=== PATIENT | female | born 1955 | race Caucasian/White ===

== ENCOUNTER 2016-05-07 13:02 | Emergency (ER) | payer OTHER ==
[2016-05-07 13:07] VITALS: BP 126/73; PULSE 76; TEMP 97.9; BMI 20.5
[2016-05-07] MEDS ORDERED: KETOROLAC TROMETHAMINE 30 MG/1 ML VIAL IM ONE (13:57)
[2016-05-07 14:01] LABS: URINE APPEARANCE CLEAR; URINE BILIRUBIN NEGATIVE (NEGATIVE); URINE BLOOD NEGATIVE (NEGATIVE); URINE COLOR LTYELLOW; URINE GLUCOSE (UA) NEGATIVE (NEGATIVE); URINE KETONE NEGATIVE (NEGATIVE); URINE LEUK ESTERASE NEGATIVE (NEGATIVE); URINE NITRITE NEGATIVE (NEGATIVE); URINE PROTEIN NEGATIVE (NEGATIVE); URINE UROBILINOGEN NEGATIVE E.U./dl (0.2-1.0)
[2016-05-07] MEDS ORDERED: KETOROLAC TROMETHAMINE 30 MG/1 ML VIAL ONE (14:01)
--- NOTE | 2016-05-07 14:02 | PDOC ---
History of Present Illness - General Chief Complaint: Back Pain Stated Complaint: LOWER BACK PAIN Time Seen by Provider: 05/07/16 13:41 History Source: Patient Exam Limitations: No Limitations - History of Present Illness Initial Comments: 05/07/16 13:59 61 yr female history of HTN, hyperthyroid presents with 3 days low back pain left side radiates to left flank for 3 days . no nausea neg fever or chills, neg vomiting. no injury. Past History - Past Medical History Allergies/Adverse Reactions: Allergies Allergy/AdvReac Type Severity Reaction Status Date / Time No Known Allergies Allergy Verified 05/07/16 13:06 Home Medications: Ambulatory Orders Atenolol [Tenormin -] 50 mg PO DAILY 11/27/15 Methimazole [Tapazole] 5 mg PO DAILY 11/27/15 Diazepam [Valium] 2 mg PO TID PRN #9 tablet MDD 6mg 05/07/16 Ketorolac Tromethamine [Toradol] 10 mg PO Q6H PRN #20 tablet 05/07/16 HTN: Yes Thyroid Disease: Yes - Surgical History Abdominal Surgery: Yes (umbilical hernia) - Family Disease History Comment:: 05/07/16 14:00 none - Psycho/Social/Smoking Cessation Hx Suicidal Ideation: No Smoking History: Never smoked Information on smoking cessation initiated: No Hx Alcohol Use: No Drug/Substance Use Hx: No Substance Use Type: None Trauma Specific PMHX - Complaint Specific PMHX Arthritis: No Back Injury: No Neck Injury: No Hx Sacro Iliac Joint Dysfunction: No Review of Systems - Review of Systems Able to Perform ROS?: Yes Is the patient limited Indonesian proficient: No Constitutional: No: Symptoms Reported HEENTM: No: Symptoms Reported, Difficulty Swallowing Respiratory: No: Symptoms reported, Other Cardiac (ROS): No: Symptoms Reported ABD/GI: No: Symptoms Reported : No: Symptoms Reported Musculoskeletal: Yes: Symptoms Reported, See HPI, Back Pain *Physical Exam - Vital Signs Last Vital Signs Temp Pulse Resp BP Pulse Ox 97.9 F 76 18 126/73 97 05/07/16 13:04 05/07/16 13:04 05/07/16 13:04 05/07/16 13:04 05/07/16 13:04 - Physical Exam General Appearance: Yes: Nourished, Appropriately Dressed HEENT: positive: EOMI, ALY, Normal ENT Inspection, TMs Normal, Pharynx Normal Neck: positive: Supple Respiratory/Chest: positive: Lungs Clear, Normal Breath Sounds. negative: Chest Tender Cardiovascular: positive: Regular Rhythm, Regular Rate Gastrointestinal/Abdominal: positive: Normal Bowel Sounds, Tender (left side lower ), Soft Rectal Exam: positive: deferred Lymphatic: negative: Adenopathy Musculoskeletal: positive: Normal Inspection Extremity: positive: Normal Capillary Refill, Normal Inspection, Normal Range of Motion Integumentary: positive: Normal Color, Dry, Warm Neurologic: positive: Fully Oriented, Alert, Normal Mood/Affect, Normal Response , Motor Strength 5/5 Medical Decision Making - Medical Decision Making 05/07/16 14:02 cc: left flank pain, low back pain radiates to lower abd, reproducable with touch, worse with sitting to standing. will check UA for UTI 05/07/16 14:11 05/07/16 14:44 urine is negative, pt feels much better after medication, sitting in the chair comfortable no distress, asking to go home. will send medication to pharmacy, pt to follow up with pmd this week. Daughter has translated this information. Pt with steady gait no distress. 05/07/16 15:18 *DC/Admit/Observation/Transfer Diagnosis at time of Disposition: Low back pain Qualifiers: Chronicity: acute Back pain laterality: left Sciatica presence: with sciatica Sciatica laterality: sciatica of left side Qualified Code(s): M54.42 - Lumbago with sciatica, left side - Discharge Dispostion Disposition: HOME Condition at time of disposition: Good - Prescriptions Prescriptions: Ketorolac Tromethamine [Toradol] 10 mg PO Q6H PRN #20 tablet PRN Reason: Back Pain Diazepam [Valium] 2 mg PO TID PRN #9 tablet MDD 6mg PRN Reason: Muscle Spasms - Referrals Referrals: Khoi Menendez [Primary Care Provider] - - Patient Instructions Additional Instructions: follow with your doctor next week for follow up no bending down or lifting heavy objects warm compresses, Icy Hot to lower back can be helpful take the medication as prescribed DO NOT TAKE VALIUM IF YOU ARE DRIVING, OPERATING MACHINERY OR OTHER IT MAY MAKE YOU DROWSY
== END 2016-05-07 14:50 | disposition home or self-care (01) ==
LOC: JERFT 13:02
PROC: 3E0233Z Introduction of Anti-inflammatory into Muscle, Percutaneous Approach (ICD-10-PCS; principal; 2016-05-07)
DX: M54.42 Lumbago with sciatica, left side (principal); I10 Essential (primary) hypertension; E05.90 Thyrotoxicosis, unspecified without thyrotoxic crisis or storm
CPT/HCPCS: 81003; 87086; 96372; 99281-25

== ENCOUNTER → 2016-09-12 | Day surgery (SDC) | payer OTHER ==
--- NOTE | 2016-09-13 14:20 | PATH ---
Cytology Non-Gynecological Report Patient Name: CARROLL CAVANAUGH [facility]. Rec. #: [id number] /Age/Gender: 1955 (Age: 61) / F Account: [id number] Location: RADIOLOGY Taken: 09/12/2016 Received: 09/12/2016 Reported: 09/13/2016 Physicians: Asiya Quezada M.D. Specimen(s) Received RIGHT THYROID FNA Clinical History Right thyroid nodule, 1.56 x 0.81 x 0.89 cm Final Diagnosis THYROID GLAND, RIGHT LOBE, US GUIDED FINE NEEDLE ASPIRATION BIOPSY: BORDERLINE CELLULARITY; COLLOID IS PRESENT. NO MALIGNANT CELLS IDENTIFIED. SCATTERED CLUSTERS OF BLAND APPEARING FOLLICULAR EPITHELIAL CELLS, FEW MACROPHAGES AND COLLOID, SUGGESTIVE OF NODULAR GOITER WITH CYSTIC CHANGE (SEE COMMENT). Comment: The smears show scattered clusters of bland appearing follicular epithelial cells, few macrophages and colloid. The findings are most suggestive of nodular goiter with cystic change (Sapphire category II, benign). Imaging correlations and follow up are suggested. Electronically Signed Buzz Trotter M.D. Gross Description Received are four air dried smears, four smears in 95% alcohol, and 20 cc of bloody fluid in formalin. Four diff-quik stained slides, four Pap stained slides and one cell block are made.
== END | disposition home or self-care (01) ==
LOC: JRADIR 09:24
PROVIDERS: ATTEND Internal Medicine Endocrinology, Diabetes & Metabolism
PROC: 0GBH3ZX Excision of Right Thyroid Gland Lobe, Percutaneous Approach, Diagnostic (ICD-10-PCS; principal; 2016-09-12)
PROC: BG44ZZZ Ultrasonography of Thyroid Gland (ICD-10-PCS; 2016-09-12)
DX: E04.1 Nontoxic single thyroid nodule (principal)
CPT/HCPCS: 76942; 88173; 88305-TC

== ENCOUNTER 2022-05-04 20:51 | Emergency (ER) | payer OTHER ==
[2022-05-04 21:00] VITALS: BMI 25.6
[2022-05-04] MEDS ORDERED: ACETAMINOPHEN 325 MG TABLET (FP) PO ONE (21:58)
[2022-05-04] MEDS ORDERED: ACETAMINOPHEN 500 MG TABLET (FP) ONE (22:18)
[2022-05-04 22:27] LABS: BASO % 0.3 % (0-2.0); EOS % 0.2 % (0-4.5); HEMATOCRIT 36.5 % (32.4-45.2); HEMOGLOBIN 12.5 GM/dL (10.7-15.3); LYMPH % 9.3 % (8-40); MCH 30.3 pg (25.7-33.7); MCHC 34.3 g/dl (32.0-36.0); MEAN CELL VOLUME 88.5 fl (80-96); MEAN PLT VOLUME 8.4 fl (7.5-11.1); MONO % 7.6 % (3.8-10.2); NEUT % 82.6 % (42.8-82.8); PLATELET COUNT 210 10^3/uL (134-434); RBC 4.12 M/mm3 (3.60-5.2); WHITE BLOOD COUNT 10.5 K/mm3 (4.0-10.0)
[2022-05-04 22:29] LABS: EPI CELLS >36 /uL (0-25.1); HYALINE CASTS 1 /uL (0-3.1); PH,URINE 8.5 (5.0-8.0); URINE APPEARANCE CLEAR; URINE BACTERIA 1157 /uL (0-1359); URINE BILIRUBIN NEGATIVE (NEGATIVE); URINE COLOR ORANGE; URINE GLUCOSE (UA) NEGATIVE (NEGATIVE); URINE KETONE TRACE (NEGATIVE); URINE LEUK ESTERASE 1+ (NEGATIVE); URINE NITRITE NEGATIVE (NEGATIVE); URINE PROTEIN 2+ (NEGATIVE); URINE WBC 35 /uL (0-25.8)
[2022-05-04 22:58] LABS: ALBUMIN 3.6 g/dl (3.4-5.0); BLOOD UREA NITROGEN 8.6 mg/dL (7-18); CALCIUM 9.3 mg/dL (8.5-10.1)
[2022-05-04 23:01] LABS: CREATININE 0.8 mg/dL (0.55-1.3)
[2022-05-04 23:03] LABS: BILIRUBIN,TOTAL 0.7 mg/dL (0.2-1); TOT PROT 7.7 g/dl (6.4-8.2)
[2022-05-05] MEDS ORDERED: LACTATED RINGERS SOLUTION 1000 ML INFUS.BAG IV ONE (01:20)
[2022-05-05] MEDS ORDERED: CEFTRIAXONE 1,000 MG in DEXTROSE 5%-WATER - 50 ML IVPB ONE (01:30)
[2022-05-05] MEDS ORDERED: LACTATED RINGERS SOLUTION 1,000 ML/1,000 ML INFUS.BAG IV SCH (01:30)
[2022-05-05] MEDS ORDERED: CEFTRIAXONE 1 GM/50 ML BAG ONE (01:31)
[2022-05-05 01:51] VITALS: BP 124/61; PULSE 77; RESP 15; TEMP 98.1
== END 2022-05-05 02:34 | disposition home or self-care (01) ==
LOC: JER 20:51
DX: N10 Acute pyelonephritis (principal)
CPT/HCPCS: 0241U-QW; 36415; 74177-TC; 80053; 81003; 85025; 87086; 93005; 93010; 96374; 99284-25

== ENCOUNTER 2022-10-12 08:56 | Day surgery (SDC) | payer MEDICARE, OTHER ==
[2022-10-06 14:18] VITALS: BMI 25.4
[2022-10-12] MEDS ORDERED: CARBACHOL 0.01% INTRA-OCULAR 1.5 ML VIAL ONE (09:26)
[2022-10-12] MEDS ORDERED: LIDOCAINE 1% P/F 10 MG/ML VIAL ONE (09:26)
[2022-10-12] MEDS ORDERED: TETRACAINE 0.5% OPHTH SOLN 2 ML BOTTLE ONE (09:26)
[2022-10-12] MEDS ORDERED: NEO/POLYMYX B SULF/DEXAMETH OPHTHALMIC 5ML BOTTLE ONE (09:26)
[2022-10-12] MEDS ORDERED: BSS (NA/CA/MG/K) BALANCED SALT SOLUTION OPHTH SOLN 15 ML BOTTLE ONE (09:26)
[2022-10-12] MEDS: TROPICAMIDE 1% OPHTH SOLN 15 ML BOTTLE ONE ×3 (10:25→10:35)
[2022-10-12] MEDS: CIPROFLOXACIN 0.3% EYE DROPS 5 ML BOTTLE ONE ×3 (10:25→10:35)
[2022-10-12] MEDS: PHENYLEPHRINE 2.5% OPTHALMIC DROP 2ML BOTTLE ONE ×3 (10:25→10:35)
[2022-10-12] MEDS: CYCLOPENTOLATE 2% OPHTH SOLN 2 ML BOTTLE ONE ×3 (10:25→10:35)
[2022-10-12] MEDS ORDERED: MIDAZOLAM HCL 2 MG/2 ML SINGLE DOSE VIAL ONE (11:32)
[2022-10-12 11:59] VITALS: RESP 18; TEMP 97
[2022-10-12 12:26] VITALS: BP 150/60; PULSE 66
== END 2022-10-12 12:30 | disposition home or self-care (01) ==
LOC: FASU 08:56
PROVIDERS: ATTEND Ophthalmology
PROC: 08RK3JZ Replacement of Left Lens with Synthetic Substitute, Percutaneous Approach (ICD-10-PCS; principal; 2022-10-12 11:37)
DX: H26.8 Other specified cataract (principal)
CPT/HCPCS: 66984; V2632

== ENCOUNTER 2022-12-21 08:14 | Day surgery (SDC) | payer MEDICARE ==
[2022-12-19 16:14] VITALS: BMI 25.4
[2022-12-21] MEDS: PHENYLEPHRINE 2.5% OPTHALMIC DROP 2ML BOTTLE ONE ×3 (08:55→09:05)
[2022-12-21] MEDS: CIPROFLOXACIN HCL 0.3% OPHTH 2.5ML BOTTLE ONE ×3 (08:55→09:05)
[2022-12-21] MEDS: TROPICAMIDE 1% OPHTH SOLN 15 ML BOTTLE ONE ×3 (08:55→09:05)
[2022-12-21] MEDS: CYCLOPENTOLATE 2% OPHTH SOLN 2 ML BOTTLE ONE ×3 (08:55→09:05)
[2022-12-21 08:58] VITALS: TEMP 97.8
[2022-12-21] MEDS ORDERED: NEO/POLYMYX B SULF/DEXAMETH OPHTHALMIC 5ML BOTTLE ONE (09:01)
[2022-12-21] MEDS ORDERED: LIDOCAINE 1% P/F 10 MG/ML VIAL ONE (09:01)
[2022-12-21] MEDS ORDERED: TETRACAINE 0.5% OPHTH SOLN 2 ML BOTTLE ONE (09:01)
[2022-12-21] MEDS ORDERED: CARBACHOL 0.01% INTRA-OCULAR 1.5 ML VIAL ONE (09:01)
[2022-12-21] MEDS ORDERED: BSS (NA/CA/MG/K) BALANCED SALT SOLUTION OPHTH SOLN 15 ML BOTTLE ONE (09:01)
[2022-12-21] MEDS ORDERED: MIDAZOLAM HCL 2 MG/2 ML SINGLE DOSE VIAL ONE (09:44)
[2022-12-21 10:36] VITALS: PULSE 60; RESP 16
[2022-12-21 10:39] VITALS: BP 140/61
== END 2022-12-21 10:30 | disposition home or self-care (01) ==
LOC: FASU 08:14
PROVIDERS: ATTEND Ophthalmology
PROC: 08RJ3JZ Replacement of Right Lens with Synthetic Substitute, Percutaneous Approach (ICD-10-PCS; principal; 2022-12-21 09:51)
DX: H26.8 Other specified cataract (principal)
CPT/HCPCS: 66984; V2632

== ENCOUNTER 2024-08-15 07:09 | Day surgery (SDC) | payer OTHER ==
[2024-08-13 14:51] VITALS: BMI 24.3
[2024-08-15] MEDS: LIDOCAINE HCL 1% PRESERVATIVE FREE - 30ML VIAL IJ ONE ×2 (10:04)
[2024-08-15 12:10] VITALS: BP 132/78; PULSE 66; RESP 16; TEMP 97.8
== END 2024-08-15 11:10 | disposition home or self-care (01) ==
LOC: JASU-SURG 07:09
PROVIDERS: ATTEND Pain Medicine Pain Medicine
PROC: 01HY3MZ Insertion of Neurostimulator Lead into Peripheral Nerve, Percutaneous Approach (ICD-10-PCS; principal; 2024-08-15 10:15)
DX: G89.4 Chronic pain syndrome (principal); M25.561 Pain in right knee
CPT/HCPCS: 64555; C1778